=== PATIENT | male | born 1965 | race Caucasian/White ===

== ENCOUNTER 2025-04-08 11:06 | Emergency (ER) | payer OTHER, SELFPAY ==
[2025-04-08 11:12] VITALS: BP 169/84
[2025-04-08 11:50] VITALS: BMI 28.0
--- NOTE | 2025-04-08 12:55 | ED.GENMED ---
History of Present Illness
General
Chief Complaint: Rabies
Source: patient
Exam Limitations: none
Time Seen by Provider: 04/08/25 11:18
Nursing documentation reviewed up to this point in time: agreed with
History of Present Illness
History of Present Illness:
see MDM
Past History
Past History
ED Past Medical History: HTN
Review of Systems
Review of Systems
Allergies reviewed?: Yes
All Other Systems: Not applicable
Phy Exam
Physical Exam
Physical Exam:
GENERAL: Alert , in no apparent distress,k very anxious
EYE: pupils equal and reactive
NECK: Supple
ENT: o/p clr, mmm.
CARDIAC: Regular rate and rhythm .
LUNGS: Clear breath sounds bilaterally, no acute respiratory distress, no wheezes/rales/rhonchi
ABDOMEN: Soft, without focal tenderness, no r/g, no cvat, normal bowel sounds
NEUROLOGICAL: Alert and oriented, no focal neuro deficits
SKIN: Warm and dry, skin intact.
PSYCH: Normal and appropriate interaction.
Course
Orders/Labs/Results
Orders:
Orders
04/08/25 12:45
Rabies Immune Globulin/Pf [HyperRAB] 1,769 unit IM NOW STA
Rabies Vaccine (Pcec)/Pf [Rabavert Rabies Vacc W-Diluent] 2.5 unit IM .ONCE ONE
04/08/25 13:00
Flush (0.9% Sodium Chloride) [Flush (Nss)] See Dose Instructions IV PER PROTOCOL
Vital Signs
Initial and Last Documented VS:
Initial Vital Signs
Temp Pulse Resp BP Pulse Ox
36.8 C 81 18 169/84 98
04/08/25 11:12 04/08/25 11:12 04/08/25 11:12 04/08/25 11:12 04/08/25 11:12
Last Documented Vital Signs
Temp Pulse Resp BP Pulse Ox
36.8 C 81 18 169/84 98
04/08/25 11:12 04/08/25 11:12 04/08/25 11:12 04/08/25 11:12 04/08/25 12:56
MDM/Problems Addressed
Differential Diagnosis Includes:
see MDM
MDM/Problems Addressed:
Note:
CHIEF COMPLAINT(S)
Concerns about potential rabies exposure following indirect contact with a rabid raccoon.
HISTORY OF PRESENT ILLNESS
The patient, a 60-year-old male, presents with anxiety regarding potential rabies exposure. The incident occurred when the patients dogs were involved in an altercation with a rabid raccoon 2 days ago. The patients was directly involved in
the animals and was scratched, leading her to seek medical care and receive rabies prophylaxis. The raccoon was trapped and confirmed rabid by authorities. Although the patient did not directly engage with the raccoon, he handled the dogs
afterward. He expressed concern that he might have come into contact with saliva that could have been present on the dogs fur, which could have potentially been transferred to his eyes. Despite being reassured by medical insurance claims processor that this
scenario presents an extremely low risk of rabies transmission, the patients anxiety remains elevated due to repeated advice from his physician and family that he should seek medical consultation. The patient expressed both reluctance and anxiety
about receiving the rabies vaccination series but feels pressured due to family and medical advice.
SOCIAL DETERMINANTS AFFECTING HEALTH
The patient reports significant anxiety from various family and medical influences encouraging him to undergo rabies prophylaxis. There are implications of familial stress, as indicated by his wifes and [id number] involvement and concern over
the situation.
PHYSICAL EXAM
- Nursing notes reviewed and vital signs reviewed.
GENERAL: Alert , in no apparent distress
CARDIAC: Regular rate and rhythm .
LUNGS: Clear breath sounds bilaterally, no acute respiratory distress, no wheezes/rales/rhonchi
NEUROLOGICAL: Alert and oriented, no focal neuro deficits
SKIN: Warm and dry, skin intact.
PSYCH: Normal and appropriate interaction. Anxious
PLAN
The decision was made to proceed with rabies prophylaxis series due to ongoing anxiety and multiple recommendations from family and healthcare providers, despite the low risk of exposure. The series will consist of four injections, to be
administered at today�s visit, then on days 3, 7, and 14. The patient was reassured about the low likelihood of actual exposure and that it is safe to proceed with vaccination despite recent influenza and COVID-19 vaccinations.
DIFFERENTIAL DIAGNOSIS
The Differential Diagnosis includes, in no particular order and is not limited to:
1. Rabies exposure.
2. Anxiety disorder.
3. Dermatological irritation from handling pets.
4. Conjunctivitis (secondary to perceived contamination).
5. Psychosomatic response to environmental stressors.
6. Mucous membrane irritation.
7. Respiratory tract infection.
8. Influenza.
9. Acute stress reaction.
10. Exposure to irritants.
60-year-old male presents concerned about potential rabies exposure. 2 days ago his wrestled a racoon away from their dog
the racoon tested pos for rabies
pt had no direct contact with racoon
but handled their dog and could have had exposure to saliva AND COULD HAVE touched his eye
he was told by several outside professionals to come get rabies
d/w ed attending
this is unlikely to be an exposure
shared medical decision making
pt very anxiuos about not obtaining rabies series
return rabies vaccine dates and rx given.
*Pulse Oximetry
SaO2: 98
Patient hypoxic: no (98)
*Critical Care Note
Total Time (30-74mins, 75-104mins- exclusive of procedures): Not Applicable
ED Attending Note
-
Portions of this chart may have been created with voice recognition software.� Occasional wrong word or��sound alike� substitutions may have occurred due to the inherent limitations of voice recognition software.
Discharge Plan
Departure
Patient Disposition: Home (Routine Discharge)
Date of Disposition: 04/08/25
Time of Disposition: 13:11
Patient with high blood pressure during this ER visit?: Yes
Condition: Fair
Covid-19: Not Applicable
Discharge Problem:
Need for prophylactic vaccination against rabies
Instructions: Rabies
Prescriptions:
New
rabies vaccine, pcec (PF) 2.5 unit suspension for reconstitution
See Rx Instructions .ROUTE .COMPLEX Qty: 3 0RF
Rx Instructions:
2.5 unit intramuscularly on 04/11, 04/15 and 04/22
Referrals:
NONE,* [Family Provider, Internal Medicine]
Stand Alone Forms: Rabies Vaccine Post Exp Dosing
Activity Restrictions/Additional Instructions:
He received a rabies series today. There are 3 additional shots. Please return to the infusion center on 10�27, 10�31 and 11�7 for your additional shots. Bring this prescription
Return for any concern
Interventions
Interventions:
*Risk Screen - Suicide Last Done: 04/08/25 11:16
*General Assessment Last Done: 04/08/25 13:20
*Neglect/Abuse Screening Last Done: 04/08/25 12:00
*ED COVID-19 Vaccine History Last Done: 04/08/25 12:00
*ED Influenza Vaccine History Last Done: 04/08/25 12:00
*Nursing Disposition Last Done: 04/08/25 13:20
Discharge Date and Time
Discharge Date/Time: 04/08/25 13:21
Print Language: [place]
[2025-04-08] MEDS: RABAVERT RABIES VACC W-DILUENT 2.5 UNIT IM (13:01)
== END 2025-04-08 13:21 | disposition home or self-care (01) ==
LOC: EMR 11:06
PROVIDERS: EMERGENCY PHYSICIAN Emergency Medicine
DX: Z20.3 Contact with and (suspected) exposure to rabies (principal); Z23 Encounter for immunization; I10 Essential (primary) hypertension; F41.9 Anxiety disorder, unspecified
CPT/HCPCS: 99282; 90471; 96372; 90375; 90675

== ENCOUNTER 2025-04-15 14:32 | Outpatient (RCR) | payer OTHER, SELFPAY ==
[2025-04-11 14:30] VITALS: BP 147/75
[2025-04-11] MEDS: RABAVERT RABIES VACC W-DILUENT 2.5 UNIT IM (14:52)
[2025-04-15 14:37] VITALS: BP 139/78
[2025-04-15] MEDS: RABAVERT RABIES VACC W-DILUENT 2.5 UNIT IM (14:50)
== END 2025-04-15 23:59 | disposition home or self-care (01) ==
LOC: OID 14:32
PROVIDERS: ATTENDING PHYSICIAN Physician Assistant; FAMILY PHYSICIAN Emergency Medicine
DX: Z20.3 Contact with and (suspected) exposure to rabies (principal); Z23 Encounter for immunization
CPT/HCPCS: 90471; 90675

== ENCOUNTER 2025-04-22 14:25 | Outpatient (RCR) | payer OTHER, SELFPAY ==
[2025-04-22 14:45] VITALS: BP 151/80
[2025-04-22] MEDS: RABAVERT RABIES VACC W-DILUENT 2.5 UNIT IM (15:01)
== END 2025-04-26 08:53 | disposition home or self-care (01) ==
LOC: OID 14:25
PROVIDERS: ATTENDING PHYSICIAN Physician Assistant; FAMILY PHYSICIAN Emergency Medicine
DX: Z20.3 Contact with and (suspected) exposure to rabies (principal); Z23 Encounter for immunization
CPT/HCPCS: 90471; 90675